=== PATIENT | male | born 1980 | race African-American/Black ===

== ENCOUNTER 2017-04-22 02:49 | Emergency (ER) | payer MEDICARE, MEDICAID ==
[~2017-04-22] VITALS: Ht 175.3 cm; Wt 81.6 kg
[~2017-04-22 02:49] MED LIST: ATIVAN0.5 MG ORAL; DILANTIN100 MG ORAL; KEPPRA500 M4 ORAL; NKM
[2017-04-22 02:55] VITALS: BP 126/82
--- NOTE | 2017-04-22 02:57 | Emergency Room Report ---
History of Present Illness General Chief Complaint: Seizure Source: Patient, EMS Present Illness HPI This is a 36-year-old male brought in by EMS after increased altered mental status. Patient prior history of seizure disorder. Patient had reportedly not been compliant with his Keppra. The patient had gradual improvement in mental status. Patient was not witnessed to be seizing. He denied any weakness to his extremities. He denied any pain. The patient noted have improvement in mental status during transfer by EMS. Allergies: Coded Allergies: UNABLE TO ASSESS (Unverified , 04/07/17) Patient History Past Medical History: see triage record Reviewed Nursing Documentation: PMH: Agreed, PSxH: Agreed Nursing Documentation-PMH Past Medical History: No History, Except For Hx Seizures: Yes Review of Systems All Other Systems: negative except mentioned in HPI Physical Exam Vital Signs Date Time Temp Pulse Resp B/P Pulse Ox O2 Delivery O2 Flow Rate FiO2 04/22/17 02:45 98.4 102 14 126/82 98 Room Air Sp02 EP Interpretation: reviewed, normal General Appearance: normal inspection, well appearing, no apparent distress, alert Head: atraumatic ENT: normal ENT inspection, hearing grossly normal, normal voice Neck: normal inspection, full range of motion, supple, no bony tend Respiratory: normal inspection, lungs clear, normal breath sounds, no respiratory distress, no retraction, no wheezing Cardiovascular #1: regular rate, rhythm, no edema Gastrointestinal: normal inspection, normal bowel sounds, non tender, soft, no guarding, no hernia Genitourinary: no CVA tenderness Musculoskeletal: normal inspection, back normal, normal range of motion Neurologic: normal inspection, alert, responsive, speech normal Psychiatric: normal inspection, judgement/insight normal, mood/affect normal Skin: normal inspection, normal color, no rash Medical Decision Making Diagnostic Impression: Primary Impression: Epileptic seizure, generalized ER Course Patient presented for seizure. Differential diagnosis included cysticercosis, electrolyte abnormality, mass lesion, or cranial hemorrhage. Because of complexity of patient's case laboratory testing and imaging studies were ordered. Patient given IV Keppra. Patient given IV Ativan for seizure.The patient is advised to follow up with primary care doctor in 1-2 days. Patient is advised to return if any worsening condition or if any changes in status that are concerning. Labs Test 04/22/17 03:20 04/22/17 05:00 White Blood Count 15.0 K/UL (4.8-10.8) Red Blood Count 5.12 M/UL (4.70-6.10) Hemoglobin 13.6 G/DL (14.2-18.0) Hematocrit 45.3 % (42.0-52.0) Mean Corpuscular Volume 89 FL (80-99) Mean Corpuscular Hemoglobin 26.7 PG (27.0-31.0) Mean Corpuscular Hemoglobin Concent 30.1 G/DL (32.0-36.0) Red Cell Distribution Width 14.2 % (11.6-14.8) Platelet Count 401 K/UL (150-450) Mean Platelet Volume 6.8 FL (6.5-10.1) Neutrophils (%) (Auto) 84.9 % (45.0-75.0) Lymphocytes (%) (Auto) 6.8 % (20.0-45.0) Monocytes (%) (Auto) 6.8 % (1.0-10.0) Eosinophils (%) (Auto) 0.8 % (0.0-3.0) Basophils (%) (Auto) 0.7 % (0.0-2.0) Sodium Level 144 mEQ/L (135-145) Potassium Level 4.0 mEQ/L (3.4-4.9) Chloride Level 98 mEQ/L (98-107) Carbon Dioxide Level 7 mEQ/L (20-30) Anion Gap 39 (5-15) Blood Urea Nitrogen 12 mg/dL (7-23) Creatinine 1.7 mg/dL (0.7-1.2) Estimat Glomerular Filtration Rate 55.3 mL/min (>60) Glucose Level 122 mg/dL (74-106) Calcium Level 9.8 mg/dL (8.6-10.2) Total Bilirubin 0.2 mg/dL (0.0-1.2) Aspartate Amino Transf (AST/SGOT) 21 U/L (5-40) Alanine Aminotransferase (ALT/SGPT) 16 U/L (3-41) Alkaline Phosphatase 142 U/L (40-129) Total Protein 8.3 g/dL (6.6-8.7) Albumin 4.5 g/dL (3.5-5.2) Globulin 3.8 g/dL Albumin/Globulin Ratio 1.1 (1.0-2.7) Urine Opiates Screen Negative (NEGATIVE) Urine Barbiturates Screen Negative (NEGATIVE) Phencyclidine (PCP) Screen Negative (NEGATIVE) Urine Amphetamines Screen Positive (NEGATIVE) Urine Benzodiazepines Screen Negative (NEGATIVE) Urine Cocaine Screen Negative (NEGATIVE) Urine Marijuana (THC) Screen Positive (NEGATIVE) Last Vital Signs Date Time Temp Pulse Resp B/P Pulse Ox O2 Delivery O2 Flow Rate FiO2 04/22/17 02:45 98.4 102 14 126/82 98 Room Air Status: improved Disposition: HOME, SELF-CARE Condition: Stable Joel Moore Apr 22, 2017 02:57
[2017-04-22] MEDS ORDERED: levETIRAcetam 500mg vial IV ONE (02:59)
[2017-04-22] MEDS ORDERED: levETIRAcetam 500 MG in D5W 110 ML IV ONE (03:00)
[2017-04-22] MEDS ORDERED: LORazepam Inj 2mg/ml 1ml IV ONE (03:00)
[2017-04-22] MEDS ORDERED: LORazepam Inj 2mg/ml 1ml ONE (03:00)
[2017-04-22 04:00] VITALS: BP 101/52
[2017-04-22 04:08] LABS: BASOPHILS % (AUTO) 0.7 % (0.0-2.0); EOSINOPHILS % (AUTO) 0.8 % (0.0-3.0); LYMPHOCYTES % (AUTO) 6.8 % (20.0-45.0); MEAN CORPUSCULAR HEMOGLOBIN 26.7 PG (27.0-31.0); MEAN CORPUSCULAR HGB CONC 30.1 G/DL (32.0-36.0); MEAN CORPUSCULAR VOLUME 89 FL (80-99); MEAN PLATELET VOLUME 6.8 FL (6.5-10.1); MONOCYTES % (AUTO) 6.8 % (1.0-10.0); NEUTROPHILS % (AUTO) 84.9 % (45.0-75.0); PLATELET COUNT 401 K/UL (150-450); RED BLOOD COUNT 5.12 M/UL (4.70-6.10); RED CELL DISTRIBUTION WIDTH 14.2 % (11.6-14.8)
[2017-04-22 04:20] LABS: ALBUMIN/GLOBULIN RATIO 1.1 (1.0-2.7); CALCIUM 9.8 mg/dL (8.6-10.2); CREATININE 1.7 mg/dL (0.7-1.2); GLOMERULAR FILTRATION RATE 55.3 mL/min (>60); TOTAL PROTEIN 8.3 g/dL (6.6-8.7)
[2017-04-22 06:00] VITALS: BP 108/60
[2017-04-22 07:20] VITALS: BP 101/55
[2017-04-22 09:02] VITALS: BP 111/68
== END 2017-04-22 09:12 | disposition home or self-care (01) ==
LOC: EDBD 02:49 → EMR 03:30
DX: G40.409 Other generalized epilepsy and epileptic syndromes, not intractable, without status epilepticus (principal)
CPT/HCPCS: 36415; 80053; 80300; 82962; 85025; 96361; 96374; 96375; 99284; J1953